=== PATIENT | male | born 1995 | race Two or more races ===

== ENCOUNTER 2023-12-17 09:06 | Emergency (ER) | payer OTHER ==
[2023-12-17 09:34] VITALS: BP 191/94; O2SAT 98
--- NOTE | 2023-12-17 09:41 | ED Physician Documentation ---
PD HPI HEENT - Stated complaint Stated Complaint: RT EAR PX - Chief complaint Chief Complaint: Heent - History obtained from History obtained from: Patient - History of Present Illness Timing - onset: How many days ago (3) Timing - duration: Days (3) Timing - details: Gradual onset, Still present Location: Right ear Improves: Nothing Worsens: Other (touching the ear) Associated symptoms: Headache. No: Fever, Congestion, Rhinorrhea, Trismus, Unable to swallow, Swollen nodes, Facial swelling, Cough Similar symptoms before: Has not had sx before Recently seen: Not recently seen - Additional information Additional information: 28-year-old [place]-speaking male indicates a 3-day history of pain to his right ear it hurts to touch it it hurts to cough or sneeze. He denies any cough associated with this. He has not had the symptoms previously. Review of Systems Constitutional: denies: Fever Eyes: denies: Decreased vision Ears: reports: Ear pain. denies: Loss of hearing, Drainage/discharge Nose: denies: Rhinorrhea / runny nose, Congestion, Sinus pressure / pain Throat: denies: Sore throat Cardiac: denies: Chest pain / pressure Respiratory: denies: Dyspnea, Cough, Wheezing PD PAST MEDICAL HISTORY - Past Surgical History Past Surgical History: No - Present Medications Home Medications: Ambulatory Orders Medication Instructions Recorded Confirmed HYDROcod/ACETAM 5/325 [[place] 5/325] 1 - 2 tablet PO Q6H PRN #14 tablet 12/17/23 Neomyc/Colist/Hydrocort/Thonzn 4 drops RIGHTEAR QID #10 ml 12/17/23 [Cortisporin-Tc Ear Suspension] - Allergies Allergies/Adverse Reactions: Allergies Allergy/AdvReac Type Severity Reaction Status Date / Time No Known Drug Allergies Allergy Verified 12/17/23 09:25 - Social History Does the pt smoke?: No Smoking Status: Never smoker Does the pt drink ETOH?: No Does the pt have substance abuse?: No - Immunizations Immunizations are current?: Yes PD ED PE NORMAL - Vitals Vital signs reviewed: Yes (Tachycardic and hypertensive) - General General: Alert and oriented X 3, No acute distress, Well developed/nourished - HEENT HEENT: Atraumatic, PERRL, EOMI, Other (The left TM is clear the canal is clear the right TM is without inflammation the canal is markedly inflamed and rugated. 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 Departure - Departure Disposition: 01 Home, Self Care Clinical Impression: Otitis externa Qualifiers: Otitis externa type: unspecified type Chronicity: acute Laterality: right Quali fied Code(s): H60.501 - Unspecified acute noninfective otitis externa, right ear Condition: Stable Instructions: ED Otitis Externa Follow-Up: [facility] [Provider Group] Prescriptions: Neomyc/Colist/Hydrocort/Thonzn [Cortisporin-Tc Ear Suspension] 4 drops RIGHTEAR QID #10 ml HYDROcod/ACETAM 5/325 [[place] 5/325] 1 - 2 tablet PO Q6H PRN #14 tablet PRN Reason: Pain Comments: Danish, today it looks like you have an infection in the ear canal on the right side. This usually results in pain with touching of the ear and especially with putting anything into the ear canal. The treatment for it is to put some topical drops into the ear canal. I have E scribed these to the [facility] in [place]. I have also scripted some pain medication to use as needed. The expectation with treatment is steady improvement over the next 2 to 3 days. I have left you a name of a clinic to follow-up with in [place]. Discharge Date/Time: 12/17/23 10:23
[2023-12-17] MEDS ORDERED: HYDROcod/ACETAM 5/325 MG TABLET PO STA (10:11)
--- NOTE | 2023-12-17 18:33 | ED Physician Documentation ---
ED Addendum - Addendum Addendum: 12/17/23 18:33 Prescription sent to Cortisporin otic. 4 drops right ear every 6 hours x 7 days. The other prescription was $250 and patient was unable to afford.
== END 2023-12-17 10:23 | disposition home or self-care (01) ==
LOC: ED 09:06
DX: H60.501 Unspecified acute noninfective otitis externa, right ear (principal)
CPT/HCPCS: 99282; 99283; A9270